=== PATIENT | male | born 1995 | race Caucasian/White ===

== ENCOUNTER 2025-04-15 20:57 | Emergency (ER) | payer OTHER ==
[~2025-04-15] VITALS: Ht 185.4 cm; Wt 65.8 kg
[2025-04-15 21:46] LABS: BASO # 0.1 10*3/uL (0.0-0.1); BASO % 0.5 % (0.0-1.0); EOS # 0.6 10*3/uL (0.0-0.4); EOS % 5.9 % (1.0-4.0); MEAN CELL VOLUME 85.9 fl (80.0-94.0); MEAN CORPUSCULAR HGB 29.3 pg (27.0-31.0); MEAN PLATELET VOLUME 11.6 fl (9.6-12.3); MONO # 0.8 10*3/uL (0.1-1.0); MONO % 7.9 % (3.0-9.0); NEUT # 6.1 10*3/uL (2.3-7.9); NEUT % 63.6 % (47.0-73.0); NUCLEATED RED BLOOD CELL 0.0 % (0.0-0.0); NUCLEATED RED BLOOD CELL 0.0 10*3/uL (0.0-0.0); PLATELET COUNT AUTOMATED 216 10*3/uL (130-400); RED CELL DISTRI WIDTH 11.5 % (0-14.5)
[2025-04-15 22:04] LABS: BUN 16 mg/dl (9-23); SGPT/ALT 14 U/L (5-49)
[2025-04-15] MEDS ORDERED: Dicyclomine Hydrochloride 20 MG/10 ML OSYR PO STA (22:13)
[2025-04-15] MEDS ORDERED: MG-AL HYDROXIDE/SIMETICONE 30 ML UDC PO STA (22:13)
[2025-04-15] MEDS ORDERED: OMEPRAZOLE40 MG PO (22:32)
[2025-04-15] MEDS ORDERED: POTASSIUM CHLORIDE 20 MEQ TAB PO ONE (22:35)
== END 2025-04-15 23:02 | disposition home or self-care (01) ==
LOC: ED 20:57
PROVIDERS: Nurse Practitioner Family
DX: K21.9 Gastro-esophageal reflux disease without esophagitis (principal); E87.6 Hypokalemia